=== PATIENT | female | born 1960 | race Hispanic/Latino ===

== ENCOUNTER → 2018-02-03 | Outpatient (CLI) | payer OTHER ==
--- NOTE | 2018-02-03 15:55 | Diagnostic Imaging Report ---
PROCEDURE:X-RAY RIGHT ANKLE, COMPLETE TECHNIQUE:3 images of the right ankle obtained INDICATION:Twisting injury for several months, continuous pain COMPARISON:None. FINDINGS: No evidence of fracture, dislocation, or focal osseous lesion. No degenerative changes. The ankle mortise is symmetric. No evidence of tibiotalar effusion. Calcaneus is normal in morphology. Visualized portions of the midfoot are unremarkable. No foreign bodies in the soft tissues. CONCLUSION: No traumatic pathology by x-ray. Consider MRI to evaluate the ligamentous and tendinous structures for injury. Dictated by: Ria Rogers M.D. on 02/03/2018 at 15:58 Electronically approved by: Ria Rogers M.D. on 02/03/2018 at 15:58
== END ==
LOC: RAD 14:51
PROVIDERS: ATTEND Family Medicine
DX: M25.571 Pain in right ankle and joints of right foot (principal)